=== PATIENT | male | born 2000 | race Caucasian/White ===

== ENCOUNTER 2021-01-20 00:42 | Emergency (ER) | payer BC, MEDICAID, SELFPAY ==
[2021-01-20 00:43] VITALS: BP 137/75; PULSE 69; RESP 17; TEMP 36.4; O2SAT 100; BMI 23.0
[2021-01-20 00:48] VITALS: BP 137/75; PULSE 69; RESP 16; TEMP 36.9; O2SAT 100
[2021-01-20 01:05] VITALS: BP 136/73; PULSE 71; RESP 15; O2SAT 100
[2021-01-20 01:55] LABS: Add Urine Microscopic? NO
[2021-01-20 01:56] LABS: Basophils # 0.1 10^3/uL (0.0-0.1); Basophils % 0.6 %; Eosinophils # 0.2 10^3/uL (0.0-0.8); Eosinophils % 2.2 %; Hemoglobin 17.1 g/dL (11.7-16.6); Lymphocytes # 3.8 10^3/uL (0.8-4.8); Mean Corpuscular HGB Conc 33.5 g/dL (30.0-36.0); Mean Corpuscular Hemoglobin 28.1 pg (28.0-34.0); Mean Corpuscular Volume 83.9 fL (80-94); Mean Platelet Volume 9.6 fL (7.4-10.4); Monocytes # 0.8 10^3/uL (0.2-0.9); Monocytes % 8.1 %; Neutrophils # 4.48 10^3/uL (1.8-7.7); Neutrophils % 47.9 %; Nucleated Red Blood Cells % 0 %; Platelet Count 321 10^3/cmm (130-400); Red Blood Count 6.08 10^6/uL (4.1-5.3); Red Cell Distribution Width 11.9 % (12.1-15.1); White Blood Count 9.4 10^3/uL (4.0-10.0)
[2021-01-20 02:00] LABS: Bilirubin Urine Neg (Negative); Blood Urine Neg (Negative); Glucose Urine UA Norm (Normal); Ketones Urine Negative (Negative); Leukocyte Esterase Urine Negative (Negative); Nitrate Urine Negative (Negative); Protein Urine Neg (Negative); Urine Appearance Clear (CLEAR); Urine Color Yellow (Yellow); Urobilinogen Urine Norm (Negative); pH Urine 7 (5-7)
[2021-01-20 02:06] LABS: Alanine Aminotransferase 13 U/L (0-41); Albumin Level 5.1 g/dL (3.5-5.2); Alcohol Level 66 mg/dL (0-10); Alkaline Phosphatase 149 IU/L (40-130); Anion Gap 15.7 (5-19); Aspartate Amino Transferase 18 U/L (0-40); Blood Urea Nitrogen 11 mg/dL (6-20); Calcium 9.6 mg/dL (8.5-10.5); Carbon Dioxide 27 mmol/L (22-29); Chloride 103 mmol/L (98-107); Globulin 2.4 g/dL (1.3-4.6); Glomerular Filtration Rate 106.5 mL/min (90-130); Glucose 81 mg/dL (65-115); Osmolality Calculated 292 mOsm/kg (285-295); Potassium 3.7 mmol/L (3.5-5.1); Sodium 142 mmol/L (136-145); Total Bilirubin 0.3 mg/dL (0.15-1.2); Total Protein 7.5 g/dL (6.6-8.7)
[2021-01-20 02:07] LABS: Amphetamines Screen Urine Negative (Negative); Barbiturates Screen Urine Negative (Negative); Benzodiazepines Screen Urine Negative (Negative); Cocaine Screen Urine Negative (Negative); Opiate Screen Urine Negative (Negative); PCP Screen Urine Negative (Negative); THC Screen Urine Negative (Negative)
--- NOTE | 2021-01-20 02:30 | ED_ITS ---
HPI - Seizure General: Chief Complaint: Seizure Stated Complaint: seizure Time Seen by Provider: 01/20/21 00:43 History of Present Illness: MD complaint: seizure Onset (ago): minute(s) Description of Episode: loss of consciousness and tonic-clonic movement -: second(s) Witnessed: Yes - by Bystander Trauma: No Seizure History: Yes Place: Home Possible Precipitating Event: alcohol withdrawal and stress Associated symptoms: Reports weakness (Bilateral lower extremity, resolved now); Deny chest pain, chills, confusion, diaphoresis or fever(s) Treatments prior to arrival: none Review of Systems Const: Denies: fever(s), chills or diaphoresis Card: Denies: chest pain Resp: Denies: dyspnea GI: Denies: abdominal pain, nausea or vomiting Neuro: Denies: confusion Physical Exam Const: COMMON NORMALS: no acute distress, patient oriented x3 and alert GENERAL APPEARANCE: cooperative and comfortable HENMT: COMMON NORMALS: normocephalic and atraumatic HEAD & SCALP: normocephalic and atraumatic Eye: COMMON NORMALS: Equal, round and reactive pupils present and EOMs intact bilaterally PUPIL: Yes Equal, round and reactive pupils present Chest: COMMONS NORMALS: normal inspection of the chest Resp: COMMON NORMALS: normal respiratory effort, No retractions, No use of accessory muscles and clear to auscultation bilaterally AUSCULTATION: clear to auscultation bilaterally Neuro: COMMON NORMALS: patient oriented x3 SENSORIUM/ORIENTATION: Yes alert Course Vital Signs: Vital signs: Vital Signs Temperature 98.5 F 01/20/21 00:48 Pulse Rate 69 01/20/21 02:42 Respiratory Rate 15 01/20/21 02:42 Blood Pressure 124/46 01/20/21 02:42 Pulse Oximetry 100 01/20/21 02:42 MDM - Seizure MDM Narrative: Medical decision making narrative: 20-year-old male with a history of partial complex seizure disorder. He had not had a seizure in over a year. He drank alcohol today, 2 tall cans of [employer] hard lemonade. He also is under quite a bit of stress at home because of family issues. His stated that he had 3 short episodes of tonic-clonic movements with decreased or no responsiveness. The patient does not remember these episodes he was weak in the bilateral lower extremities postictally, but now is at baseline. His labs are normal. He will be allowed discharge. Lab Data: Labs: Lab Results 01/20/21 01/20/21 01/20/21 Range/Units 00:14 00:14 01:36 WBC 9.4 (4.0-10.0) 10^3/ uL RBC 6.08 H (4.1-5.3) 10^6/u L Hgb 17.1 H (11.7-16.6) g/dL Hct 51.0 (42.0-52.0) % MCV 83.9 (80-94) fL MCH 28.1 (28.0-34.0) pg MCHC 33.5 (30.0-36.0) g/dL RDW 11.9 L (12.1-15.1) % Plt Count 321 (130-400) 10^3/c mm MPV 9.6 (7.4-10.4) fL Neut % (Auto) 47.9 % Lymph % (Auto) 41.0 % Noble % (Auto) 8.1 % Eos % (Auto) 2.2 % Baso % (Auto) 0.6 % Neut # (Auto) 4.48 (1.8-7.7) 10^3/u L Lymph # (Auto) 3.8 (0.8-4.8) 10^3/u L Noble # (Auto) 0.8 (0.2-0.9) 10^3/u L Eos # (Auto) 0.2 (0.0-0.8) 10^3/u L Baso # (Auto) 0.1 (0.0-0.1) 10^3/u L Nucleated RBC % (a uto) 0 % Nucleated RBCs # 0.0 /100WBC Sodium 142 (136-145) mmol/L Potassium 3.7 (3.5-5.1) mmol/L Chloride 103 (98-107) mmol/L Carbon Dioxide 27 (22-29) mmol/L Anion Gap 15.7 (5-19) BUN 11 (6-20) mg/dL Creatinine 0.9 (0.7-1.2) mg/dL GFR Calculation 106.5 (90-130) mL/min Glucose 81 (65-115) mg/dL Calculated Osmolal ity 292 (285-295) mOsm/k g Calcium 9.6 (8.5-10.5) mg/dL Total Bilirubin 0.3 (0.15-1.2) mg/dL AST 18 (0-40) U/L ALT 13 (0-41) U/L Alkaline Phosphata se 149 H (40-130) IU/L Total Protein 7.5 (6.6-8.7) g/dL Albumin 5.1 (3.5-5.2) g/dL Globulin 2.4 (1.3-4.6) g/dL Urine Color Yellow (Yellow) Urine Appearance Clear (CLEAR) Urine pH 7 (5-7) Ur Specific Gravit y 1.010 (1.005-1.030) Urine Protein Neg (Negative) Urine Glucose (UA) Norm (Normal) Urine Ketones Negative (Negative) Urine Blood Neg (Negative) Urine Nitrate Negative (Negative) Urine Bilirubin Neg (Negative) Urine Urobilinogen Norm (Negative) mg/dL Ur Leukocyte Socorro ase Negative (Negative) Urine Opiates Scre en (Negative) ng/mL Ur Barbiturates Sc reen (Negative) ng/mL Ur Phencyclidine S crn (Negative) ng/mL Ur Amphetamines Sc reen (Negative) ng/mL U Benzodiazepines Scrn (Negative) ng/mL Urine Cocaine Scre en (Negative) ng/mL U Marijuana (THC) Screen (Negative) ng/mL Ethyl Alcohol 66 H (0-10) mg/dL 01/20/21 Range/Units 01:36 WBC (4.0-10.0) 10^3/ uL RBC (4.1-5.3) 10^6/u L Hgb (11.7-16.6) g/dL Hct (42.0-52.0) % MCV (80-94) fL MCH (28.0-34.0) pg MCHC (30.0-36.0) g/dL RDW (12.1-15.1) % Plt Count (130-400) 10^3/c mm MPV (7.4-10.4) fL Neut % (Auto) % Lymph % (Auto) % Noble % (Auto) % Eos % (Auto) % Baso % (Auto) % Neut # (Auto) (1.8-7.7) 10^3/u L Lymph # (Auto) (0.8-4.8) 10^3/u L Noble # (Auto) (0.2-0.9) 10^3/u L Eos # (Auto) (0.0-0.8) 10^3/u L Baso # (Auto) (0.0-0.1) 10^3/u L Nucleated RBC % (a uto) % Nucleated RBCs # /100WBC Sodium (136-145) mmol/L Potassium (3.5-5.1) mmol/L Chloride (98-107) mmol/L Carbon Dioxide (22-29) mmol/L Anion Gap (5-19) BUN (6-20) mg/dL Creatinine (0.7-1.2) mg/dL GFR Calculation (90-130) mL/min Glucose (65-115) mg/dL Calculated Osmolal ity (285-295) mOsm/k g Calcium (8.5-10.5) mg/dL Total Bilirubin (0.15-1.2) mg/dL AST (0-40) U/L ALT (0-41) U/L Alkaline Phosphata se (40-130) IU/L Total Protein (6.6-8.7) g/dL Albumin (3.5-5.2) g/dL Globulin (1.3-4.6) g/dL Urine Color (Yellow) Urine Appearance (CLEAR) Urine pH (5-7) Ur Specific Gravit y (1.005-1.030) Urine Protein (Negative) Urine Glucose (UA) (Normal) Urine Ketones (Negative) Urine Blood (Negative) Urine Nitrate (Negative) Urine Bilirubin (Negative) Urine Urobilinogen (Negative) mg/dL Ur Leukocyte Socorro ase (Negative) Urine Opiates Scre en Negative (Negative) ng/mL Ur Barbiturates Sc reen Negative (Negative) ng/mL Ur Phencyclidine S crn Negative (Negative) ng/mL Ur Amphetamines Sc reen Negative (Negative) ng/mL U Benzodiazepines Scrn Negative (Negative) ng/mL Urine Cocaine Scre en Negative (Negative) ng/mL U Marijuana (THC) Screen Negative (Negative) ng/mL Ethyl Alcohol (0-10) mg/dL Discharge Plan Discharge Patient Disposition: Home Clinical Impression: Generalized seizure Condition: Stable Discharge Orders: Discharge ED (Routine); Ordered 01/20/21 Ordered By: Dieudonne Cade Discharge Diet: Usual diet Discharge Activity: Limit activity as instructed Patient Instructions: Seizures Activity Restrictions/Additional Instructions: Abstain from alcohol, as it can increase her susceptibility to seizure. Do not drive or operate machinery until cleared by your doctor. Return for repeated episodes of seizure, mental status changes, fever, weakness, other concerning symptoms. 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
[2021-01-20 02:42] VITALS: BP 124/46; PULSE 69; RESP 15; O2SAT 100
== END 2021-01-20 02:42 | disposition home or self-care (01) ==
PROVIDERS: Emergency Provider Emergency Medicine
DX: G40.409 Other generalized epilepsy and epileptic syndromes, not intractable, without status epilepticus (principal)
CPT/HCPCS: 80053; 80306; 80307; 81003; 85025; 99281

== ENCOUNTER 2021-02-12 02:44 | Emergency (ER) | payer BC, MEDICAID, SELFPAY ==
[2021-02-12 02:49] VITALS: BP 125/75; PULSE 103; RESP 16; TEMP 36.9; O2SAT 97; BMI 21.6
--- NOTE | 2021-02-12 03:05 | W.ED.NAVMDI ---
HPI - Nausea/Vomiting/Diarrhea General: Chief complaint: Nausea/Vomiting/Diarrhea Stated complaint: n/v/d Time Seen by Provider: 02/12/21 02:55 History of Present Illness: HPI Narrative: Patient is a 20-year-old male who comes to the ED with nausea vomiting and diarrhea. Patient says he has a history of acid reflux but does not currently take anything to treat it. He says approximately 2 weeks ago he started developing nausea and vomiting after each time he ate and also diarrhea after he eats. Denies any blood in the stool or any current abdominal pain. Patient does report eating out more recently and not cooking much at home. He states that almost every time after he eats he will develop some nausea and then vomit. He describes his emesis as yellow bile. He states he has had almost 20 pounds of weight loss in the last 2 weeks. He denies any marijuana use says that he is a tobacco smoker. Patient did admit to drinking some [employer] hard lemonade's yesterday. Denies any fever, chills, bloody emesis, abdominal pain, chest pain, shortness of breath, dysuria or hematuria. Associated nausea: Yes Associated symtoms: Reports nausea; Denies change in vision, chest pain, dysuria, fatigue, headache(s) or palpitations Review of Systems Const: Reports: change in weight (20 pound weight loss); Denies: fever(s), chills or fatigue Eyes: Denies: change in vision or eye discomfort ENMT: Denies: throat pain, odynophagia, nasal discharge or nasal congestion Card: Denies: chest pain, palpitations, edema, swelling of feet/ankles, dyspnea on exertion or orthopnea Resp: Denies: dyspnea, productive cough or non-productive cough GI: Reports: nausea, vomiting, heartburn and diarrhea; Denies: abdominal pain, constipation or hematochezia : Denies: flank pain, difficulty urinating, dysuria or hematuria Musc: Denies: neck pain, back pain or extremity swelling Skin/Breast: Denies: rash or new lesions Neuro: Denies: headache(s), numbness in extremities or weakness in extremities Physical Exam Const: COMMON NORMALS: no acute distress, patient oriented x3, healthy appearing and alert GENERAL APPEARANCE: cooperative and comfortable HENMT: COMMON NORMALS: normocephalic HEAD & SCALP: normocephalic MOUTH: Normal oral and palatal mucosa present THROAT: posterior oropharynx normal and uvula midline Eye: COMMON NORMALS: Equal, round and reactive pupils present PUPIL: Yes Equal, round and reactive pupils present Neck/C-Spine: COMMON NORMALS: supple GENERAL: Yes normal visual inspection Resp: COMMON NORMALS: normal respiratory effort, No retractions, No use of accessory muscles and clear to auscultation bilaterally EFFORT & INSPECTION: Yes able to speak in complete sentences, No tachypneic, No respiratory distress and No labored AUSCULTATION: clear to auscultation bilaterally Cardio: COMMON NORMALS: regular rate, regular rhythm, S1 normal heart sound present, S2 normal heart sound present, No gallops present (Cardio), No clicks present (Cardio), No murmurs present (Cardio) and Peripheral pulses 2+ throughout RATE: regular rate RHYTHM: regular rhythm HEART SOUNDS: S1 normal heart sound present and S2 normal heart sound present PERIPHERAL PULSES: Peripheral pulses 2+ throughout GI: COMMON NORMALS: Normal to inspection, nondistended, normoactive bowel sounds present, Soft to palpation, non-tender and no masses PALPATION: Yes Soft to palpation : COMMON NORMALS: Yes no CVA tenderness BLADDER/KIDNEY EXAM: Yes no CVA tenderness Back/Pelvis: COMMON NORMALS: no CVA tenderness Extremity: COMMON NORMALS: normal to inspection Neuro: COMMON NORMALS: patient oriented x3 and moves all extremities SENSORIUM/ORIENTATION: Yes alert Skin: GENERAL SKIN EXAM: dry skin Course Vital Signs: Vital signs: Vital Signs Temperature 98.5 F 02/12/21 02:49 Pulse Rate 87 02/12/21 03:16 Respiratory Rate 17 02/12/21 03:16 Blood Pressure 117/71 02/12/21 03:16 Pulse Oximetry 98 02/12/21 03:16 MDM - Nausea/Vomiting/Diarrhea MDM Narrative: Medical decision making narrative: Patient is a 20-year-old male comes to the ED with nausea/vomiting, diarrhea and acid indigestion symptoms. Patient says he has been diagnosed with acid reflux in the past and was taking medication to help with acid reflux but stopped taking it a while ago. Vitals are stable all labs were unremarkable. Physical exam unremarkable patient appears healthy in no acute pain and nontoxic. Patient has no abdominal tenderness. Patient was given IV Zofran and a GI cocktail and his symptoms improved. Patient says he does not have a primary care physician here locally and would like a referral. I placed an order with case management for patient to be referred to a PCP. Patient diagnosed with gastritis and nausea and discharged with a prescription for Pepcid and Zofran. Return to ED precautions given. I told him that case management will be contacting him in the next several days to set up an appointment with a primary care physician. Patient understood and agreed with plan. Lab Data: Attestation: I reviewed the patient's lab results. Labs: Lab Results 02/12/21 02/12/21 Range/Units 03:13 03:13 WBC 7.9 (4.0-10.0) 10^3/ uL RBC 5.46 H (4.1-5.3) 10^6/u L Hgb 15.3 (11.7-16.6) g/dL Hct 45.5 (42.0-52.0) % MCV 83.3 (80-94) fL MCH 28.0 (28.0-34.0) pg MCHC 33.6 (30.0-36.0) g/dL RDW 11.7 L (12.1-15.1) % Plt Count 299 (130-400) 10^3/c mm MPV 9.1 (7.4-10.4) fL Neut % (Auto) 56.3 % Lymph % (Auto) 32.1 % Mora % (Auto) 8.3 % Eos % (Auto) 2.2 % Baso % (Auto) 0.8 % Neut # (Auto) 4.44 (1.8-7.7) 10^3/u L Lymph # (Auto) 2.5 (0.8-4.8) 10^3/u L Mora # (Auto) 0.7 (0.2-0.9) 10^3/u L Eos # (Auto) 0.2 (0.0-0.8) 10^3/u L Baso # (Auto) 0.1 (0.0-0.1) 10^3/u L Nucleated RBC % (a uto) 0 % Nucleated RBCs # 0.0 /100WBC Sodium 139 (136-145) mmol/L Potassium 3.5 (3.5-5.1) mmol/L Chloride 104 (98-107) mmol/L Carbon Dioxide 27 (22-29) mmol/L Anion Gap 11.5 (5-19) BUN 9 (6-20) mg/dL Creatinine 0.7 (0.7-1.2) mg/dL GFR Calculation 142.4 H (90-130) mL/min Glucose 86 (65-115) mg/dL Calculated Osmolal ity 286 (285-295) mOsm/k g Calcium 9.1 (8.5-10.5) mg/dL Total Bilirubin 0.3 (0.15-1.2) mg/dL AST 22 (0-40) U/L ALT 15 (0-41) U/L Alkaline Phosphata se 115 (40-130) IU/L Total Protein 6.4 L (6.6-8.7) g/dL Albumin 4.6 (3.5-5.2) g/dL Globulin 1.8 (1.3-4.6) g/dL Lipase 24 (13-60) U/L Discharge Plan Discharge Patient Disposition: Home Clinical Impression: Nausea Gastritis Qualifiers: Gastritis type: unspecified gastritis Chronicity: unspecified Gastritis bleeding: without bleeding Qualified Code(s): K29.70 - Gastritis, unspecified, without bleeding Condition: Stable Prescriptions: New Zofran 4 mg tablet 4 mg PO Q8H Qty: 20 RF: 0 Pepcid 20 mg tablet 20 mg PO BID 42 Days Qty: 84 RF: 0 Discharge Orders: Discharge ED (Routine); Ordered 02/12/21 Ordered By: Brian Pace Discharge Diet: Advance as tolerated Discharge Activity: Resume usual activity Patient Instructions: Gastritis (ED) Activity Restrictions/Additional Instructions: Follow-up with medical provider as directed. Case management will be contacting you in the next several days to set up an appointment with a PCP. Take medications as prescribed. Advance diet as tolerated. return to the ER or your medical provider if condition worsens. Please read and understand discharge instructions. If any questions, please ask. 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
[2021-02-12] MEDS: sodium chloride 0.9% 1,000 ML 999 ML IV (03:14)
[2021-02-12] MEDS: ondansetron 2 mg/ML SDV 2 mL 4 MG IVP (03:14)
[2021-02-12 03:16] VITALS: BP 117/71; PULSE 87; RESP 17; O2SAT 98
[2021-02-12 03:22] LABS: Basophils # 0.1 10^3/uL (0.0-0.1); Basophils % 0.8 %; Eosinophils # 0.2 10^3/uL (0.0-0.8); Eosinophils % 2.2 %; Hematocrit 45.5 % (42.0-52.0); Hemoglobin 15.3 g/dL (11.7-16.6); Lymphocytes # 2.5 10^3/uL (0.8-4.8); Lymphocytes % 32.1 %; Mean Corpuscular HGB Conc 33.6 g/dL (30.0-36.0); Mean Corpuscular Volume 83.3 fL (80-94); Mean Platelet Volume 9.1 fL (7.4-10.4); Monocytes # 0.7 10^3/uL (0.2-0.9); Monocytes % 8.3 %; Neutrophils # 4.44 10^3/uL (1.8-7.7); Neutrophils % 56.3 %; Nucleated Red Blood Cells % 0 %; Platelet Count 299 10^3/cmm (130-400); Red Blood Count 5.46 10^6/uL (4.1-5.3); Red Cell Distribution Width 11.7 % (12.1-15.1); White Blood Count 7.9 10^3/uL (4.0-10.0)
[2021-02-12] MEDS: lidocaine 2% viscous 15 ML, aluminum-mag hydrox-simethicon 30 ML, sucralfate oral liq 1 GM PO (03:39)
[2021-02-12 03:42] LABS: Alanine Aminotransferase 15 U/L (0-41); Albumin Level 4.6 g/dL (3.5-5.2); Alkaline Phosphatase 115 IU/L (40-130); Anion Gap 11.5 (5-19); Aspartate Amino Transferase 22 U/L (0-40); Blood Urea Nitrogen 9 mg/dL (6-20); Calcium 9.1 mg/dL (8.5-10.5); Carbon Dioxide 27 mmol/L (22-29); Chloride 104 mmol/L (98-107); Globulin 1.8 g/dL (1.3-4.6); Glomerular Filtration Rate 142.4 mL/min (90-130); Glucose 86 mg/dL (65-115); Lipase 24 U/L (13-60); Osmolality Calculated 286 mOsm/kg (285-295); Potassium 3.5 mmol/L (3.5-5.1); Sodium 139 mmol/L (136-145); Total Bilirubin 0.3 mg/dL (0.15-1.2); Total Protein 6.4 g/dL (6.6-8.7)
[2021-02-12 04:16] VITALS: BP 117/78; PULSE 87; RESP 16; TEMP 36.9; O2SAT 98
--- NOTE | 2021-02-14 11:55 | DCPLANNER ---
Addendum entered by Karime Larkin 02/14/21 15:19: Patient called patient case manager back, he stated that he did want to get established with a primary care physician. Patient stated that he would need to get established in [place] due to his insurance. reliability manager called the [facility], spoke with Nicci, gave clinic patients information. A follow up appointment was scheduled for Saturday, February 20, 2021 at 9:[address] Acosta at the [facility]. reliability manager called patient and informed patient of the scheduled appointment. Original Note: reliability manager had message to speak with patient about getting established with a primary care physician. reliability manager called phone number , unable to speak with patient at this time. reliability manager unable to leave a voicemail for patient at this time due to no voicemail box set up.
--- NOTE | 2021-04-06 08:17 | DCPLANNER ---
Patient had a follow up appointment scheduled with Dr. Acosta at [facility] - patient did attend appointment.
== END 2021-02-12 04:19 | disposition home or self-care (01) ==
PROVIDERS: Emergency Provider Physician Assistant
DX: K29.70 Gastritis, unspecified, without bleeding (principal)
CPT/HCPCS: 80053; 83690; 85025; 96361; 96374; 99283; J2405; J7030

== ENCOUNTER 2021-04-24 14:28 | Emergency (ER) | payer BC, MEDICAID, SELFPAY ==
[2021-04-24 14:35] VITALS: BP 130/58; PULSE 90; RESP 18; TEMP 37.1; O2SAT 97; BMI 198.2
--- NOTE | 2021-04-24 15:42 | XR_ITS ---
WS: [id number] Exam: XR hand LT min 3V* [id number] Date/Time of Exam: 04/24/2021 4:00 PM Reason For Exam: smash injury between 2 logs Findings: No fractures, soft tissue swelling, or unusual calcifications are noted. The hand shows normal bony alignment. There is no irregularity of the bony architecture. XR/XR hand LT min 3V* [id number] IMPRESSION: Normal left hand.
--- NOTE | 2021-04-24 15:42 | XR_ITS ---
WS: [id number] Exam: XR wrist LT min 3V* [id number] Date/Time of Exam: 04/24/2021 4:00 PM Reason For Exam: smash injury between 2 logs There are no fractures, soft tissue swelling, or unusual calcifications. The wrist shows normal bony alignment. There is no irregularity of the bony architecture. XR/XR wrist LT min 3V* [id number] IMPRESSION: Negative left wrist.
--- NOTE | 2021-04-24 15:43 | W.ED.TRAUMA ---
HPI - Trauma General: Chief Complaint: Trauma Stated Complaint: L HAND PAIN, SMASHED HAND IN MACHINE Time Seen by Provider: 04/24/21 15:36 History of Present Illness: HPI narrative: Patient is a 20-year-old male comes to the ED with left hand injury. 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 He also has 2 superficial abrasions. He rates his current pain a 3 out of 10. He says he has some swelling on hand around fourth and fifth digit. Patient says he is up-to-date on his tetanus. Associated symptoms: Denies abdominal pain, back pain, chest pain, chills, fever(s), headache(s), nausea or vomiting Review of Systems Const: Denies: fever(s), chills or fatigue Eyes: Denies: change in vision or eye discomfort ENMT: Denies: throat pain, odynophagia, nasal discharge or nasal congestion Card: Denies: chest pain, palpitations, edema, swelling of feet/ankles, dyspnea on exertion or orthopnea Resp: Denies: dyspnea, productive cough or non-productive cough GI: Denies: abdominal pain, nausea, vomiting, diarrhea, constipation or hematochezia : Denies: flank pain, difficulty urinating, dysuria or hematuria Musc: Reports: extremity pain (Left hand) and extremity swelling (Left hand); Denies: neck pain or back pain Skin/Breast: Reports: new lesions (Superficial abrasion on left flank and left forearm.); Denies: rash Neuro: Denies: headache(s), numbness in extremities or weakness in extremities [facility] ED PFSH: Social History Smoking and tobacco status: current every day smoker Alcohol intake: current Alcohol intake frequency: few times a month Physical Exam Const: COMMON NORMALS: no acute distress, patient oriented x3 and alert GENERAL APPEARANCE: cooperative and comfortable HENMT: COMMON NORMALS: normocephalic HEAD & SCALP: normocephalic MOUTH: Normal oral and palatal mucosa present THROAT: posterior oropharynx normal and uvula midline Neck/C-Spine: COMMON NORMALS: supple GENERAL: Yes normal visual inspection Resp: COMMON NORMALS: normal respiratory effort, No retractions, No use of accessory muscles and clear to auscultation bilaterally AUSCULTATION: clear to auscultation bilaterally Cardio: COMMON NORMALS: regular rate, regular rhythm, S1 normal heart sound present, S2 normal heart sound present, No gallops present (Cardio), No clicks present (Cardio), No murmurs present (Cardio) and Peripheral pulses 2+ throughout RATE: regular rate RHYTHM: regular rhythm HEART SOUNDS: S1 normal heart sound present and S2 normal heart sound present PERIPHERAL PULSES: Peripheral pulses 2+ throughout GI: COMMON NORMALS: Normal to inspection, nondistended, normoactive bowel sounds present, Soft to palpation, non-tender and no masses PALPATION: Yes Soft to palpation : COMMON NORMALS: Yes no CVA tenderness BLADDER/KIDNEY EXAM: Yes no CVA tenderness Back/Pelvis: COMMON NORMALS: no CVA tenderness Extremity: LEFT UPPER EXTREMITY: Yes hand & digits Left hand and digits: Yes inspection (Some swelling and ecchymosis to) Neuro: COMMON NORMALS: patient oriented x3 and moves all extremities SENSORIUM/ORIENTATION: Yes alert Skin: NARRATIVE SKIN EXAM: Patient has 1 superficial abrasion on left forearm and another superficial abrasion on left flank. No signs of active infection. GENERAL SKIN EXAM: dry skin Course Vital Signs: Vital signs: Vital Signs Temperature 98.7 F 04/24/21 14:35 Pulse Rate 73 04/24/21 17:13 Respiratory Rate 18 04/24/21 17:13 Blood Pressure 119/66 04/24/21 17:13 Pulse Oximetry 98 04/24/21 17:13 MDM - Trauma MDM Narrative: Medical decision making narrative: Patient is a 20-year-old male comes to the ED with left hand injury. Patient describes left hand getting smashed between 2 logs while at work. Patient appears nontoxic and is in no acute distress or pain. He has a superficial abrasion to his left flank in 1 to left forearm left has mild swelling and ecchymosis. Neurovascular intact. Left hand and left wrist x-ray showed no acute fractures or findings. Patient was diagnosed with contusion of the left hand and abrasions. He was discharged home and told to follow-up with his PCP in 7 to 10 days for reevaluation. Rest, ice left hand and take [id number] Tylenol or Motrin for pain. Return to ED precautions given. Patient understood agree with plan. Imaging Data^: Xray Ortho: Attestation: I personally reviewed and interpreted this imaging study as follows: Radiologist's impression: [address], [place] [address]MDfc ReportSigned Patient: Nolan Del Rosario #: [id number]: 2000Acct#:[id number]/Sex: Date: 04/24/21Loc: ERRoom/Bed:Attending Dr: Ordering Provider/Ordering MD: Brian Pace Date of Service: 04/24/21 Procedure(s): XR hand LT min 3V* [id number] Accession Number(s): [id number] Report Number: [id number] WS: [id number] Exam: XR hand LT min 3V* [id number] Date/Time of Exam: 04/24/2021 4:00 PM Reason For Exam: smash injury between 2 logs Findings: No fractures, soft tissue swelling, or unusual calcifications are noted. The hand shows normal bony alignment. There is no irregularity of the bony architecture. XR/XR hand LT min 3V* [id number] IMPRESSION: Normal left hand. Dictated By:Julia Espinosa By:Julia Espinosa Date/Time:04/25/21 0811DD/ 0810 [address] [address] [facility], [place] [address]EQot ReportSigned Patient: Nolan Del Rosario #: [id number]: 2000Acct#:[id number]/Sex: MADM Date: 04/24/21Loc: ERRoom/Bed:Attending Dr: Ordering Provider/Ordering MD: Brian Pace Date of Service: 04/24/21 Procedure(s): XR wrist LT min 3V* [id number] Accession Number(s): [id number] Report Number: [id number] WS: [id number] Exam: XR wrist LT min 3V* [id number] Date/Time of Exam: 04/24/2021 4:00 PM Reason For Exam: smash injury between 2 logs There are no fractures, soft tissue swelling, or unusual calcifications. The wrist shows normal bony alignment. There is no irregularity of the bony architecture. XR/XR wrist LT min 3V* [id number] IMPRESSION: Negative left wrist. Dictated By:Clineigned By:Julia Espinosa Date/Time:04/25/2110DD/ 0809 Discharge Plan Discharge Patient Disposition: Home Clinical Impression: Abrasion Contusion of left hand Qualifiers: Encounter type: initial encounter Qualified Code(s): S60.222A - Contusion of left hand, initial encounter Condition: Stable Prescriptions: No Action No Known Home Medications RF: 0 Discharge Orders: Discharge ED (Routine); Ordered 04/24/21 Ordered By: Brian Pace Referrals: Arelis Acosta MD [Primary Care Provider] - Discharge Diet: Regular Discharge Activity: Resume usual activity Patient Instructions: Contusion, Abrasion (ED) Activity Restrictions/Additional Instructions: Follow-up with medical provider as directed. Take [id number]-mnvyqvt Tylenol or ibuprofen for pain. Apply cold packs on hand to help with swelling. Return to the ER or your medical provider if condition worsens. Please read and understand discharge instructions. Thank you for choosing [facility] for your healthcare needs today. Please realize this is an emergency room and that we are providing you with a medical screening exam and this may not be complete and all inclusive of all the testing and or work up that you may need to determine your ailment or severity of your illness. It is very important that you follow up as instructed or that you return to the Emergency Department should you have concerns or if your condition changes or worsens in any way. 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
[2021-04-24] MEDS: tetanus-dipt-pertussis 0.5 mL SDV IM (16:40)
[2021-04-24 17:13] VITALS: BP 119/66; PULSE 73; RESP 18; O2SAT 98
== END 2021-04-24 17:15 | disposition home or self-care (01) ==
PROVIDERS: Emergency Provider Physician Assistant; PCP Family Medicine
DX: S60.222A Contusion of left hand, initial encounter (principal); S50.812A Abrasion of left forearm, initial encounter; W23.0XXA Caught, crushed, jammed, or pinched between moving objects, initial encounter; F17.210 Nicotine dependence, cigarettes, uncomplicated; Z23 Encounter for immunization
CPT/HCPCS: 73110; 73130; 90471; 90715; 99283

== ENCOUNTER 2021-05-20 15:16 | Emergency (ER) | payer BC, MEDICAID, SELFPAY ==
[2021-05-20 18:03] VITALS: BP 119/74; PULSE 72; RESP 18; TEMP 36.6; O2SAT 98
--- NOTE | 2021-05-20 19:43 | W.ED.GENADLT ---
HPI - General Adult General: Chief complaint: General Medical Stated complaint: N/V Time Seen by Provider: 05/20/21 19:30 History of Present Illness: HPI narrative: Patient is a 20-year-old male who comes to the ED with a bug bite on chest. He says he noticed it today when he woke up and it was itchy and he was scratching at it a lot. He had an episode of emesis at 1030 today but has not had any nausea or vomiting since. He says the bug bite stings just a little bit since he scratched out a bunch but has no other complaints. He says his nausea and vomiting have resolved. Associated symptoms: Reports nausea (Resolved before coming to the ED.); Deny chest pain, dyspnea, headache(s), rash, palpitations or vomiting Review of Systems Const: Denies: fever(s), chills or fatigue Eyes: Denies: change in vision or eye discomfort ENMT: Denies: throat pain, odynophagia, nasal discharge or nasal congestion Card: Denies: chest pain, palpitations, edema, swelling of feet/ankles, dyspnea on exertion or orthopnea Resp: Denies: dyspnea, productive cough or non-productive cough GI: Reports: nausea (Resolved before coming to the ED.); Denies: abdominal pain, vomiting, diarrhea, constipation or hematochezia : Denies: flank pain, difficulty urinating, dysuria or hematuria Musc: Denies: neck pain, back pain or extremity swelling Skin/Breast: Reports: new lesions (Left chest bug bite); Denies: rash Neuro: Denies: headache(s), numbness in extremities or weakness in extremities [facility] ED PFSH: Social History Smoking and tobacco status: current every day smoker Alcohol intake: current Alcohol intake frequency: few times a month Physical Exam Const: COMMON NORMALS: no acute distress, patient oriented x3, healthy appearing and alert GENERAL APPEARANCE: cooperative and comfortable HENMT: COMMON NORMALS: normocephalic HEAD & SCALP: normocephalic MOUTH: Normal oral and palatal mucosa present THROAT: posterior oropharynx normal and uvula midline Neck/C-Spine: COMMON NORMALS: supple GENERAL: Yes normal visual inspection Resp: COMMON NORMALS: normal respiratory effort, No retractions, No use of accessory muscles and clear to auscultation bilaterally AUSCULTATION: clear to auscultation bilaterally Cardio: COMMON NORMALS: regular rate, regular rhythm, S1 normal heart sound present, S2 normal heart sound present, No gallops present (Cardio), No clicks present (Cardio), No murmurs present (Cardio) and Peripheral pulses 2+ throughout RATE: regular rate RHYTHM: regular rhythm HEART SOUNDS: S1 normal heart sound present and S2 normal heart sound present PERIPHERAL PULSES: Peripheral pulses 2+ throughout GI: COMMON NORMALS: Normal to inspection, nondistended, normoactive bowel sounds present, Soft to palpation, non-tender and no masses PALPATION: Yes Soft to palpation : COMMON NORMALS: Yes no CVA tenderness BLADDER/KIDNEY EXAM: Yes no CVA tenderness Back/Pelvis: COMMON NORMALS: no CVA tenderness Extremity: COMMON NORMALS: normal to inspection Neuro: COMMON NORMALS: patient oriented x3 and moves all extremities SENSORIUM/ORIENTATION: Yes alert Skin: NARRATIVE SKIN EXAM: Patient has a small superficial bug bite on left chest. It is slightly raised and erythemic but no warmth or tenderness upon palpation. No concern for any cellulitis developing. GENERAL SKIN EXAM: dry skin Course Vital Signs: Vital signs: Vital Signs Temperature 98 F 05/20/21 18:03 Pulse Rate 78 05/20/21 19:54 Respiratory Rate 16 05/20/21 19:54 Blood Pressure 115/72 05/20/21 19:54 Pulse Oximetry 98 05/20/21 19:54 Discharge Plan Discharge Patient Disposition: Home Clinical Impression: Bug bite Qualifiers: Encounter type: initial encounter Qualified Code(s): W57.XXXA - Bitten or stung by nonvenomous insect and other nonvenomous arthropods, initial encounter Condition: Stable Prescriptions: No Action No Known Home Medications RF: 0 Discharge Orders: Discharge ED (Routine); Ordered 05/20/21 Ordered By: Brian Pace Referrals: Arelis Acosta MD [Primary Care Provider] - Discharge Diet: Regular Discharge Activity: Resume usual activity Patient Instructions: Insect Bite or Sting (ED) Activity Restrictions/Additional Instructions: Follow-up with medical provider as directed. Apply [id number] triple antibiotic ointment on bug bite daily. Return to the ER or your medical provider if condition worsens. Please read and understand discharge instructions. Thank you for choosing [facility] for your healthcare needs today. Please realize this is an emergency room and that we are providing you with a medical screening exam and this may not be complete and all inclusive of all the testing and or work up that you may need to determine your ailment or severity of your illness. It is very important that you follow up as instructed or that you return to the Emergency Department should you have concerns or if your condition changes or worsens in any way. 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
[2021-05-20 19:54] VITALS: BP 115/72; PULSE 78; RESP 16; O2SAT 98
== END 2021-05-20 19:59 | disposition home or self-care (01) ==
PROVIDERS: Emergency Provider Physician Assistant; PCP Family Medicine
DX: S20.362A Insect bite (nonvenomous) of left front wall of thorax, initial encounter (principal); W57.XXXA Bitten or stung by nonvenomous insect and other nonvenomous arthropods, initial encounter; F17.210 Nicotine dependence, cigarettes, uncomplicated
CPT/HCPCS: 99281

== ENCOUNTER 2022-02-27 16:10 | Emergency (ER) | payer BC, MEDICAID, SELFPAY ==
[2022-02-27 16:15] VITALS: BP 133/77; PULSE 101; RESP 18; TEMP 37.2; O2SAT 98; BMI 20.2
--- NOTE | 2022-02-27 16:23 | ED_ITS ---
HPI - Ear Problem General: Chief complaint: Ear Stated complaint: R ear pain Time Seen by Provider: 02/27/22 16:16 History of Present Illness: Patient is a 21-year-old male comes to the ED with right ear complaint. Patient says 2 weeks ago he removed a tick from his right ear. For the past 3 days he feels increased pressure in his right ear and says he is having difficulty hearing out of right ear. Denies any pain. He has no other complaints. Denies any drainage from ear or fevers. Associated symptoms: Denies fever(s), headache(s) or neck pain Review of Systems Const: Denies: fever(s), chills or fatigue Eyes: Denies: change in vision or eye discomfort ENMT: Reports: change in hearing; Denies: throat pain, odynophagia, nasal discharge or nasal congestion Card: Denies: chest pain, palpitations, edema, swelling of feet/ankles, dyspnea on exertion or orthopnea Resp: Denies: dyspnea, productive cough or non-productive cough GI: Denies: abdominal pain, nausea, vomiting, diarrhea, constipation or hematochezia : Denies: flank pain, difficulty urinating, dysuria or hematuria Musc: Denies: neck pain, back pain or extremity swelling Skin/Breast: Denies: rash or new lesions Neuro: Denies: headache(s), numbness in extremities or weakness in extremities [facility] ED PFSH: Medical History (Updated 02/28/22 @ 07:23 by JOSE Shahid) No pertinent family history Surgical History (Updated 02/28/22 @ 07:23 by JOSE Shahid) No pertinent past surgical history Social History Smoking and tobacco status: current every day smoker Alcohol intake: current Alcohol intake frequency: few times a month Physical Exam Const: COMMON NORMALS: no acute distress, patient oriented x3, healthy appe aring and alert GENERAL APPEARANCE: cooperative and comfortable HENMT: COMMON NORMALS: normocephalic and TM's normal bilaterally HEAD & SCALP: normocephalic TYMPANIC MEMBRANE: TM's normal bilaterally MOUTH: Normal oral and palatal mucosa present THROAT: posterior oropharynx normal and uvula midline OTHER: Patient has bilateral cerumen impaction. The nurse then cleaned out use in his right ear he had a little bit of bleeding in his EAC. No other acute findings noted. Neck/C-Spine: COMMON NORMALS: supple GENERAL: Yes normal visual inspection Resp: COMMON NORMALS: normal respiratory effort, No retractions, No use of acc essory muscles and clear to auscultation bilaterally AUSCULTATION: clear to auscultation bilaterally Cardio: COMMON NORMALS: regular rate, regular rhythm, S1 normal heart sound present, S2 normal heart sound present, No gallops present (Cardio), No clicks present (Cardio), No murmurs present (Cardio) and Peripheral pulses 2+ throughout RATE: regular rate RHYTHM: regular rhythm HEART SOUNDS: S1 normal heart sound present and S2 normal heart sound present PERIPHERAL PULSES: Peripheral pulses 2+ throughout GI: COMMON NORMALS: Normal to inspection, nondistended, normoactive bowel sounds present, Soft to palpation, non-tender and no masses PALPATION: Yes Soft to palpation : COMMON NORMALS: Yes no CVA tenderness BLADDER/KIDNEY EXAM: Yes no CVA tenderness Back/Pelvis: COMMON NORMALS: no CVA tenderness Extremity: COMMON NORMALS: normal to inspection Neuro: COMMON NORMALS: patient oriented x3 and moves all extremities SENSORIUM/ORIENTATION: Yes alert Skin: GENERAL SKIN EXAM: dry skin Course Vital Signs: Vital signs: Vital Signs Temperature 98.9 F 02/27/22 16:15 Pulse Rate 84 02/27/22 16:27 Respiratory Rate 16 02/27/22 16:27 Blood Pressure 133/77 02/27/22 16:27 Pulse Oximetry 97 02/27/22 16:27 MDM - Ear Medical Decision Making Patient is a 21-year-old male comes to the ED with complaint of not being able to hear well out of his right ear. Patient has cerumen impaction in right ear and Debrox was used to clean out the right ear. He had a little bit of bleeding from his EAC after they were cleaned out. Patient was diagnosed with a cerumen impaction but since he had bleeding from his EAC to put him on a Ciprodex eardrops to help prevent any infection. Follow-up with PCP in a week. Return to ED precautions given. Patient understood and agreed with plan. Discharge Plan Discharge Patient Disposition: Home Clinical Impression: Cerumen impaction Qualifiers: Laterality: bilateral Qualified Code(s): H61.23 - Impacted cerumen, bilateral Condition: Stable Prescriptions: New Ciprodex 0.3-0.1 % drops,suspension 4 drp otic (ear) BID 7 Days Qty: 7.5 0RF No Action service dog See Rx Instructions as directed .COMPLEX Qty: 1 0RF Rx Instructions: 1 service dog for HX of seizure disorder as directed; Discharge Orders: Discharge ED (Routine); Ordered 02/27/22 Ordered By: Brian Pace Referrals: Arelis Acosta MD [Primary Care Provider] - Discharge Diet: Regular Discharge Activity: Resume usual activity Patient Instructions: Cerumen Impaction Activity Restrictions/Additional Instructions: Follow-up with medical provider as directed. Take medications as prescribed. Return to the ER or your medical provider if condition worsens. Please read and understand discharge instructions. Thank you for choosing [facility] for your healthcare needs today. Please realize this is an emergency room and that we are providing you with a medical screening exam and this may not be complete and all inclusive of all the testing and or work up that you may need to determine your ailment or severity of your illness. It is very important that you follow up as instructed or that you return to the Emergency Department should you have concerns or if your condition changes or worsens in any way. 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
[2022-02-27 16:27] VITALS: BP 133/77; PULSE 84; RESP 16; O2SAT 97
== END 2022-02-27 17:29 | disposition home or self-care (01) ==
PROVIDERS: Emergency Provider Physician Assistant; PCP Family Medicine
DX: H61.23 Impacted cerumen, bilateral (principal); F17.210 Nicotine dependence, cigarettes, uncomplicated
CPT/HCPCS: 99282